=== PATIENT | male | born 1975 | race Caucasian/White ===

== ENCOUNTER 2019-09-10 22:01 | Inpatient (IN) ==
[2019-09-10] MEDS ORDERED: ZOFRAN IV ONE (22:23)
[2019-09-10] MEDS ORDERED: G.I. COCKTAIL PO ONE (22:23)
--- NOTE | 2019-09-10 22:30 | EKG Report ---
Test Performed on : 09/10/2019 10:07:11 PM Test Reason : Chest pain Blood Pressure : / mmHG Vent. Rate : 088 BPM Atrial Rate : 088 BPM P-R Int : 154 ms QRS Dur : 084 ms QT Int : 376 ms P-R-T Axes : 051 047 047 degrees QTc Int : 454 ms Normal sinus rhythm. with sinus arrhythmia. Normal ECG When compared with ECG of 11-DEC-2017 07:45, No significant change was found Unconfirmed Result
[2019-09-10] MEDS ORDERED: CARAFATE LIQUID PO ONE (23:08)
[2019-09-10 23:53] LABS: BASO# 0.02 X1000 (0.0-0.2); BASO% 0.1 % (0.0-0.8); EOS# 0.16 X1000 (0.0-0.7); EOS% 1.2 % (0.0-10.0); HEMATOCRIT 45.9 % (42.0-52.0); LYMPH# 1.77 X1000 (1.2-3.4); LYMPH% 12.8 % (20.5-51.1); MCH 31.7 PG (27-31); MCHC 34.9 g/dL (33-37); MCV 91.1 FL (81-99); MONO# 0.93 X1000 (0.11-0.59); MONO% 6.7 % (1.7-9.3); NEUT# 10.95 X1000 (1.4-6.5); NEUT% 79.2 % (42.2-75.2); PLT 292 X1000 (130-400); RBC 5.04 XMIL (4.7-6.1); RDW 12.8 % (11.5-14.5); WBC 13.83 X1000 (4.8-10.8)
[2019-09-10 23:56] LABS: AGAP 17; ALKALINE PHOSPHATASE 83 U/L (32-122); AMYLASE 44 U/L (20-200); BUN 9 mg/dL (8-22); CALCIUM 10.1 mg/dL (8.8-10.2); CHLORIDE 103 mmol/L (98-107); COSMO 282; ESTIMATED GFR > 60; GLUCOSE 100 mg/dL (70-104); GOT 21 U/L (10-34); GPT 21 U/L (10-44); LIPASE 38 U/L (13-60); POTASSIUM 4.2 mmol/L (3.5-5.1); SODIUM 142 mmol/L (136-145); TCO2 22 mmol/L (25-35); TOTAL BILIRUBIN 2.34 mg/dL (0.20-1.00); TOTAL PROTEIN 7.5 g/dL (6.3-8.3)
[2019-09-11] MEDS ORDERED: DILAUDID IV ONE (00:12)
[2019-09-11] MEDS ORDERED: SODIUM CHLORIDE 0.9% INJ ONE ×2 (00:32→16:02)
[2019-09-11] MEDS ORDERED: PROTONIX IV ONE (00:32)
[2019-09-11] MEDS ORDERED: ZOFRAN IV ONE (01:16)
--- NOTE | 2019-09-11 02:32 | PROVIDER DOCUMENTATION ---
This chart was entered by Dusty Alejandra Scribe, acting as scribe for Denilson Stinson MD. HPI-Chest Pain - General Chief Complaint: Chest Pain Stated Complaint: CHEST PAIN Time Seen by Provider: 09/10/19 22:06 Source: patient, family Allergies/Adverse Reactions: Patient Allergies Allergy/AdvReac Type Severity Reaction Status Date / Time Penicillins Allergy Intermediate jittery Verified 12/11/17 08:08 Home Medications: Home Medication List Medication Instructions Recorded Confirmed Last Taken Type Omeprazole 20 mg PO DAILY #30 capsule. 12/11/17 Unknown Rx - History of Present Illness-CP Nature of Presenting Problem: 44 yom presents to the ed with c/o chest pain. pt states similar hx of same mild symptoms but growing worse today ,( seen in ed before for same sym told " acid reflux takes medication for have not been missed). pt states N/V today , " N/V on the way to the ed." family states V [address] to the ed . 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 denies: back pain, dizziness, fever/chills, shortness of breath Nitro Today/Relief: no nitro taken today Aspirin Treatment Today: unknown Prior Chest Pain/Cardiac Workup: reports: no prior chest pain Similar Symptoms Previously?: No Recently Seen Here or By Another Healthcare Provider: No Review of Systems - Adult - REVIEW OF SYSTEMS - ADULT Constitutional: denies: chills, fever Eyes: denies: blurred vision, double vision Ears, Nose, Mouth & Throat: reports: no symptoms reported Cardiovascular: reports: see HPI, chest pain. denies: heart murmur, palpitations Respiratory: denies: shortness of breath, wheezing Gastrointestinal: reports: see HPI, abdominal pain, nausea, vomiting. denies: constipation, diarrhea, rectal bleeding Genitourinary: reports: no symptoms reported Musculoskeletal: denies: back pain, neck pain Integumentary: reports: no symptoms reported Neurological: reports: no symptoms reported Psychiatric: reports: no symptoms reported Endocrine: reports: no symptoms reported Hematologic/Lymphatic: reports: no symptoms reported Allergic/Immunologic: reports: no symptoms reported All Other Systems: Reviewed and Negative Past History - Adult - PAST MEDICAL HISTORY-ADULT Review of Records: reports: Old Records Reviewed, Nursing Assessment Review, Medications Reviewed, Social history reviewed & non-contributory. Major Childhood Illnesses: reports: denies history Cardiovascular: reports: denies history Respiratory: reports: denies history Gastrointestinal: reports: GERD Obstetrical/Gynecological: reports: denies history Genitourinary: reports: denies history Musculoskeletal: reports: denies history Neurological: reports: denies history Psychiatric: reports: denies history Endocrine/Immune: reports: denies history Other Conditions: reports: denies history - PRIOR SURGERIES/PROCEDURES Surgical/Procedure History: reports: none - IMMUNIZATION STATUS Childhood Immunizations: See Nurse Assessment Flu Vaccine: See Nurse Assessment - FAMILY HISTORY Family History: reviewed, not pertinent - SOCIAL HISTORY Smoking: denies Substance Use: denies Physical Exam-General - PHYSICAL EXAM-ADULT Initial Vital Signs Reviewed: Yes - CONSTITUTIONAL General Appearance: appears well, alert, mild distress - HEAD, EARS, NOSE, MOUTH & THROAT HENMT: negative: pharynx normal (on exam slight pharyngitis) - RESPIRATORY Respiratory: chest non-tender, lungs clear, normal breath sounds - CARDIOVASCULAR Cardiovascular: normal peripheral pulses, regular rate, rhythm - GASTROINTESTINAL (ABDOMEN) Abdominal Exam: normal bowel sounds, soft, tenderness (epi tenderness) - SKIN Integumentary: normal color - NEUROLOGIC Neurologic: grossly normal, no motor/sensory deficits - PSYCHIATRIC Psych/Mental Status: normal mood/affect, normal thought content, normal thought process, oriented x 3 - HEART Score HEART Score: History: Slightly Suspicious HEART Score: ECG: Non-Specific Repolarization Disturbance/LBBB/PM HEART Score: Age: 45-65 Years HEART Score: Risk Factors for Atherosclerotic Disease: 1 or 2 Risk Factors HEART Score: Troponin: < or = Normal Limit Total HEART Score:: 3 Progress - PLAN OF CARE/RESULTS Progress/Plan/Lab Results: Vital Signs - 8 hr 09/10/19 22:09 09/10/19 22:30 09/10/19 22:45 Temperature 97.7 F Pulse Rate 89 110 H 82 Respiratory Rate 18 15 16 Blood Pressure 149/96 O2 Sat by Pulse Oximetry 99 100 100 09/10/19 23:45 09/11/19 00:00 Temperature Pulse Rate 85 98 H Respiratory Rate Blood Pressure O2 Sat by Pulse Oximetry 100 100 Laboratory Results - last 24 hr 09/10/19 09/10/19 09/10/19 22:50 22:50 22:50 WBC 13.83 H RBC 5.04 Hgb 16.0 Hct 45.9 MCV 91.1 MCH 31.7 H MCHC 34.9 RDW Std Deviation 12.8 Plt Count 292 MPV 10.0 Neut % (Auto) 79.2 H Lymph % (Auto) 12.8 L Elbert % (Auto) 6.7 Eos % (Auto) 1.2 Baso % (Auto) 0.1 Neut # (Auto) 10.95 H Lymph # (Auto) 1.77 Elbert # (Auto) 0.93 H Eos # (Auto) 0.16 Baso # (Auto) 0.02 D-Dimer, Quantitative < 0.27 Sodium 142 Potassium 4.2 Chloride 103 Carbon Dioxide 22 L Anion Gap 17 BUN 9 Creatinine 1.0 Estimated GFR/1.73 m2 > 60 BUN/Creatinine Ratio 9 Glucose 100 Calculated Osmolality 282 Calcium 10.1 Total Bilirubin 2.34 H AST 21 ALT 21 Alkaline Phosphatase 83 Troponin T Total Protein 7.5 Albumin 5.0 Globulin 2.5 Albumin/Globulin Ratio 2.0 Amylase 44 Lipase 38 09/10/19 09/11/19 22:50 00:48 WBC RBC Hgb Hct MCV MCH MCHC RDW Std Deviation Plt Count MPV Neut % (Auto) Lymph % (Auto) Elbert % (Auto) Eos % (Auto) Baso % (Auto) Neut # (Auto) Lymph # (Auto) Elbert # (Auto) Eos # (Auto) Baso # (Auto) D-Dimer, Quantitative Sodium Potassium Chloride Carbon Dioxide Anion Gap BUN Creatinine Estimated GFR/1.73 m2 BUN/Creatinine Ratio Glucose Calculated Osmolality Calcium Total Bilirubin AST ALT Alkaline Phosphatase Troponin T < 0.010 < 0.010 Total Protein Albumin Globulin Albumin/Globulin Ratio Amylase Lipase Orders Category Date Time Status CT ABD/PELVIS W/IV CONT ONLY [CT] Stat Exams 09/11/19 00:12 Taken cxr [CHEST-1 VIEW] [RAD] Stat Exams 09/10/19 22:22 Taken AMYLASE [CHEM] Stat Lab 09/10/19 22:50 Completed CBC WITH ELECTRONIC DIFF [HEME] Stat Lab 09/10/19 22:50 Completed COMPREHENSIVE METABOLIC PANEL [CHEM] Stat Lab 09/10/19 22:50 Completed D-DIMER [COAG] Stat Lab 09/10/19 22:50 Completed LIPASE [CHEM] Stat Lab 09/10/19 22:50 Completed TROPONIN T Stat Lab 09/10/19 22:50 Completed TROPONIN T Stat Lab 09/11/19 00:48 Completed Hydromorphone [Dilaudid] Med 09/11/19 00:12 Discontinued 1 mg IV NOW ONE Lido/Barroso Alk/Al&mg Hydrox [G.i. Cocktail] Med 09/10/19 22:23 Discontinued 30 ml PO NOW ONE Ondansetron [Zofran] Med 09/10/19 22:23 Discontinued 4 mg IV NOW ONE Ondansetron [Zofran] Med 09/11/19 01:16 Discontinued 4 mg IV NOW ONE Pantoprazole [Protonix] Med 09/11/19 00:32 Discontinued 40 mg IV NOW ONE Sodium Chloride 0.9% Med 09/11/19 00:32 Discontinued 10 ml INJ NOW ONE Sucralfate [Carafate Liquid] Med 09/10/19 23:08 Discontinued 1 gm PO NOW ONE EKG [EKG] Stat Ther 09/10/19 22:03 Draft Result Diagrams: 09/10/19 22:50 09/10/19 22:50 - EKG 1 Time of EKG reading by physician:: 22:07 EKG Read and Signed by:: Denilson Stinson EKG Interpretation (*Must complete 3 of following elements*): Normal Rate: 88 Rhythm: NSR with sinus arrhythmia Webb: normal QRS: normal IA Interval: normal ST Wave: normal - CONSULTS/PCP/HOSPITALIST Notification #1 *Consult/PCP/Hospitalist*: Dr Ayoub Time Discussed: 02:32 Consult Disposition: Will see in ED, Admit Departure - Departure Date of Disposition Decision: 09/10/19 Time of Disposition Decision: 02:32 DIAGNOSIS: Chest pain, GERD (gastroesophageal reflux disease) Disposition: ADMITTED INPATIENT 09 Certified Medical Emergency: Emergent Condition: Fair Referrals and Follow-Ups: None,PCP [Primary Care Provider] - - Critical Care Note This patient required my direct & personal management of CC.: No Attestation - Physician/ [place] Attestation Patient care was provided by Advanced Practice Provider:: No The physician spent face to face time with patient:: Yes Advanced Practice Provider documentation review:: Supervising physician onsite and consulted in the evaluation and care of this patient. The physician did have a face to face encounter with the patient. This chart was documented by the indicated scribe, (Dusty Alejandra, [employer]) and accurately reflects the services I performed and decisions made by me, Denilson Stinson MD, as attested by the provider's signature.
--- NOTE | 2019-09-11 05:00 | HISTORY AND PHYSICAL ---
PRIMARY CARE PHYSICIAN: None. CHIEF COMPLAINT: Chest pain. HISTORY OF PRESENTING ILLNESS: A 44-year-old male with a history of acid reflux who had presented to the emergency department with several days history of having chest discomfort. He described it, however, as pressure like and states that it was not improving. The patient was seen in the ED and due to his presenting symptoms it was thought that we will place him for observation for further evaluation and management. At the time of my examination, patient denied any headache, fever, chills, nausea, vomiting, diarrhea, hemoptysis, melena or weight changes, but complained of chest pain. PAST MEDICAL HISTORY: Includes GERD. PAST SURGICAL HISTORY: None. ALLERGIES: Penicillin. CURRENT MEDICATIONS: Include omeprazole. SOCIAL HISTORY: No history of smoking. Admits to social alcohol use. Denies any illicit drug use. FAMILY HISTORY: No history of coronary artery disease. REVIEW OF SYSTEMS: Fourteen point review of system as listed in HPI. Other systems negative. PHYSICAL EXAMINATION: GENERAL: Cooperative, friendly male. He is resting comfortably now. VITAL SIGNS: Temperature 97.7 degrees, pulse 89, respiration 18, blood pressure 149/96. HEENT: Atraumatic, normocephalic. Extraocular movements intact. PERRLA. NECK: No masses. CHEST: Clear to auscultation. CARDIOVASCULAR: Regular rate and rhythm. ABDOMEN: Soft. Positive bowel sounds. EXTREMITIES: No edema. NEUROLOGIC: He is awake, alert, oriented x3. GENITOURINARY: No bladder distention. SKIN: Warm. LABORATORIES AND STUDIES: WBC 13.83, hemoglobin 16.1, hematocrit 45.9, platelets 292,000. Sodium 142, potassium 4.2, chloride 103, CO2 is 22, BUN is 9, creatinine is 1.0, glucose 100. ASSESSMENT: A 44-year-old male with a history of gastroesophageal reflux disease who had presented to the emergency department with several days history of having chest pain. We will place the patient for observation for further evaluation and management. 1. Chest pain. 2. Gastroesophageal reflux disease. PLAN: 1. We will admit patient to medical floor with telemetry. 2. Continue with cardiac workup. Check EKG, serial cardiac enzymes. Have patient continue on aspirin. We will use sublingual nitroglycerin and morphine p.r.n. chest pain. 3. We will continue patient on PPI. 4. We will put patient on DVT prophylaxis with SCDs. 5. We will continue to follow and reassess, make further recommendation based on patient's clinical course. cc: Tripp Ayoub MD
--- NOTE | 2019-09-11 05:38 | Diag Imaging Result Doc PS360 ---
EXAM: CHEST-1 VIEW HISTORY: chest pain TECHNIQUE: Single view COMPARISON: 11/11/2013 FINDINGS: The lungs are well expanded. The heart is not enlarged. The vessels are not distended. There are no infiltrates. No effusion identified. There is a granuloma in the mid left lung. IMPRESSION: Negative exam. Electronically signed by Angel Andre 09/11/2019 5:36 AM
[2019-09-11] MEDS ORDERED: NITROGLYCERIN SL PRN (06:36)
[2019-09-11] MEDS ORDERED: ZOFRAN IV PRN (06:36)
[2019-09-11] MEDS: PRILOSEC PO SCH ×2 (07:00→13:23)
--- NOTE | 2019-09-11 07:22 | Diag Imaging Result Doc PS360 ---
EXAM: CT ABD/PELVIS W/IV CONT ONLY 09/11/2019 HISTORY: epigastric abdo pain TECHNIQUE: This exam was performed using automated exposure control, adjustment of mA or kV according to patient size, and/or use of iterative reconstruction technique. COMMENT: There is no evidence of acute disease in the visualized portion of the chest. There are no previous studies. The stomach is somewhat distended with fluid and gas. There are some granulomata in the spleen which is slightly enlarged measuring over 14 cm in AP dimension. The gallbladder is unremarkable in appearance. The liver is within normal limits. The adrenal glands are not enlarged. The pancreas is unremarkable. The renal pelves are somewhat prominent particularly the right renal pelvis. There may be a slight degree of hydronephrosis on the right. The right ureter is not distended and the possibility of a ureteral pelvic junction stenosis is suggested. There is no evidence of bowel obstruction. There is a certain amount of fluid throughout the small bowel. The appendix is not distended or inflamed in appearance. There is some stool throughout the colon without evidence of dilatation. No significant adenopathy is present. The aorta is not distended. Pelvis: There is no free fluid. The urinary bladder is not distended. The regional skeleton is intact. There is a bone island in the right ilium. There are some degenerative disc changes. There is no evidence of acute bony abnormality. IMPRESSION: The possibility of gastroenteritis cannot be excluded. Otherwise no evidence of acute disease. Electronically signed by Dario Hopper 09/11/2019 7:20 AM
[2019-09-11] MEDS ORDERED: ASPIRIN PO SCH (09:00)
--- NOTE | 2019-09-11 10:25 | CARDIOLOGY CONSULTATION ---
DATE: 09/11/2019 REASON FOR CONSULTATION: Cardiology was consulted for chest pain. HISTORY OF PRESENT ILLNESS: 44-year-old, gentleman with history of gastroesophageal reflux disease. He comes in with complaints of chest pain. He describes his chest pain as in the epigastric lower sternal region and at times in the abdomen as well. He has also had some midsternal chest discomfort. Says that these areas of chest pain seem to change from time to time. He came to the emergency room and was ruled out for myocardial infarction by cardiac enzymes. There is no exertional component of chest pain. There is no history of palpitations. There is no dizziness or syncope. REVIEW OF SYSTEM: A 14-point review of systems was done. GI System as above. In addition, there is no history of hematemesis or melena.Central nervous system: No focal weakness to suggest a CVA or TIA. Genitourinary: There is no dysuria or hematuria. Respiratory System: There is no history of cough, expectoration, hemoptysis. There is no history of fevers or chills. PAST MEDICAL HISTORY: Gastroesophageal reflux disease. CURRENT MEDICATIONS: Omeprazole. ALLERGIES: Allergic to aspirin. PHYSICAL EXAMINATION: Vital Signs: Blood pressure 127/87. Cardiovascular System: Normal jugular venous pressure. There no thyromegaly. No carotid bruit. First and second heart sounds were heard. There was no S3 gallop. Respiratory System: Normal air entry. There are no crepitations or rhonchi. Abdomen: Soft. There was epigastric tenderness. There was no guarding or rigidity. Bowel sounds were heard. Central nervous system: Alert and was moving all 4 extremities. Extremities: Examination of extremities revealed no pedal edema. HEENT: Atraumatic, normocephalic. Pupils were equal and reacting to light. ASSESSMENT: Mr. Chaparro Rosas is a 44-year-old gentleman with history of gastroesophageal reflux disease. He comes in with complaints of abdominal discomfort as well as retrosternal chest discomfort that is more suggestive of gastroesophageal reflux disease. He was ruled out for myocardial infarction by cardiac enzymes. Sodium 142, potassium 4.2, BUN 9, creatinine 1.0, amylase 44, lipase 3. Cardiac enzymes were negative. A CT scan was done which revealed possible gastroenteritis. Otherwise no other obvious acute changes. PLAN: 1. From a cardiac standpoint, we will get an echocardiogram to assess cardiac and valvular function. 2. We will get a Cardiolite stress test to make sure there is no ischemia. 3. I would recommend GI workup. cc: Rodger Medley MD
[2019-09-11] MEDS ORDERED: LEXISCAN ONE (11:42)
--- NOTE | 2019-09-11 14:10 | Diag Imaging Result Document ---
PROCEDURE NAME: MYOCARDIAL PERF SCAN, STR/REST - 09/11/2019 INDICATION: Chest pain. PROCEDURES PERFORMED: 1. Lexiscan stress. 2. One-day stress rest myocardial perfusion imaging. PROCEDURE FINDINGS: LEXISCAN STRESS RESULTS: 1. Baseline EKG shows sinus tachycardia, rate of 104 beats per minute. There is mild nonspecific ST-T changes in the inferior and lateral leads. 2. Lexiscan stress does not demonstrate any clear evidence of ischemic changes. There do not appear to be any clear significant ST depression changes from baseline, although baseline EKG somewhat limits the ability to interpret this study. PVCs were identified but no significant arrhythmias. PERFUSION IMAGING RESULTS: 1. No evidence of abnormal extracardiac uptake. 2. TID ratio is 1.16. 3. Perfusion imaging does not demonstrate any clear evidence of ischemic defects. There is some very mild likely soft tissue attenuation artifact inferiorly but wall motion appears to be intact in this study. I believe these perfusion images suggest a low risk of ischemic events. 4. Normal ejection fraction of 63%. End-diastolic volume 121, end-systolic volume of 45. Wall motion appears to be normal. cc: MD Chio Díaz PA
[2019-09-11] MEDS: TYLENOL PO PRN (14:50)
--- NOTE | 2019-09-11 16:12 | ECHO REPORT ---
ORDER DATE: 09/11/2019 INDICATION: Chest pain. FINDINGS: 1. The right atrium appears normal in size at 3.7 cm. 2. Mild tricuspid regurgitation. RV systolic pressure of 37. 3. Normal RV size and systolic function. 4. No significant pulmonic insufficiency. 5. Normal left atrial size with a dimension of 3.6 cm. 6. No mitral prolapse. There is mild mitral regurgitation. 7. Normal LV size, end-diastolic dimension of 5.3 cm. Normal wall thicknesses with a posterior and interventricular septal wall thickness of 0.9 cm each. Normal LV systolic function. Estimated EF of 55% to 60% percent with normal wall motion. 8. Aortic valve opens well. It is trileaflet. No evidence of stenosis or insufficiency. 9. Aorta appears normal in visualized segments. 10. No pericardial effusion seen. cc: MD Chio Díaz PA
[2019-09-11] MEDS ORDERED: PROTONIX IV SCH (16:15)
--- NOTE | 2019-09-11 16:26 | PROGRESS NOTE ---
DATE: 09/11/2019 SUBJECTIVE: This morning Mr. Robins refers to be doing well. He still complains of some epigastric and mid-abdomen pain. Mr. Robins also refers that he did have a lot of vomiting and diarrhea. Even just a while ago he asked to empty his bowel and it was diarrhea. OBJECTIVE: Vital signs: Blood pressure is 127/87, pulse of 102, respirations 18, temperature 98.2 degrees. General: Mr. Robins is a 44-year-old gentleman. He is in bed. No distress. HEENT: Mucosa is pink and moist. Anicteric. Acyanotic. Neck: Supple. Chest: Clear to auscultation. No crepitations. No rhonchi. Cardiovascular: Regular rate and rhythm. No murmurs. No rubs. No gallops. GI: Abdomen is soft. Tender in the midepigastrium. No rebound. No guarding. Bowel sounds present. Extremities: No pedal edema. POT SANDER: The patient is awake, alert, and oriented. LABORATORY DATA: So far WBC was 13.84 from yesterday. No chemistry. Troponins have been checked 3 times which were negative. EKG was unremarkable. A myocardial perfusion scan showed an ejection fraction of 63%. No wall motion abnormality. A CT scan of the abdomen and pelvis showed possibility of gastroenteritis. ASSESSMENT: 1. Intractable nausea and vomiting associated with diarrhea and abdominal discomfort, all consistent with possible viral gastroenteritis. We are going to get a stool culture. We will keep Mr. Robins also on a clear to full liquid diet. If he tolerates it, we will advance it to GI soft. We will give Bentyl for pain management and the patient will also be put on Protonix. 2. Cardiac workup has been fairly unremarkable. 3. History of gastroesophageal reflux disease. The patient will be on Protonix IV since he is not able to tolerate p.o. cc: Marcial Cat MD
[2019-09-11] MEDS: NS 1,000 ML IV SCH (16:48)
[2019-09-11] MEDS: BENTYL IM SCH ×2 (17:00→20:41)
[2019-09-11 23:50] LABS: CK-MB 3.86 ng/mL (0.0-5.0)
[2019-09-12] MEDS: NS 1,000 ML IV SCH (02:54)
[2019-09-12 05:32] LABS: BASO# 0.01 X1000 (0.0-0.2); BASO% 0.2 % (0.0-0.8); EOS# 0.06 X1000 (0.0-0.7); EOS% 1.3 % (0.0-10.0); HEMATOCRIT 40.4 % (42.0-52.0); HEMOGLOBIN 13.7 g/dL (14.0-18.0); LYMPH# 1.14 X1000 (1.2-3.4); MCH 31.6 PG (27-31); MCHC 33.9 g/dL (33-37); MCV 93.3 FL (81-99); MONO# 0.66 X1000 (0.11-0.59); MONO% 14.5 % (1.7-9.3); MPV 9.6 FL (7.4-10.4); NEUT# 2.69 X1000 (1.4-6.5); PLT 222 X1000 (130-400); RBC 4.33 XMIL (4.7-6.1); RDW 12.9 % (11.5-14.5); WBC 4.56 X1000 (4.8-10.8)
[2019-09-12] MEDS: BENTYL IM SCH (05:57)
[2019-09-12 05:58] LABS: CHOLESTEROL 122 mg/dL (0-200); HDL 60 mg/dL (35-55); LDL 51 mg/dL; TRIGLYCERIDES 56 mg/dL (39-160); VLDL 11 mg/dL
[2019-09-12] MEDS: TYLENOL PO PRN (08:46)
[2019-09-12] MEDS ORDERED: SODIUM CHLORIDE 0.9% 10 ML ONE (09:37)
[2019-09-12 11:27] VITALS: BP 119/83
--- NOTE | 2019-09-13 16:05 | DISCHARGE SUMMARY ---
ADMISSION DATE: 09/10/2019 DISCHARGE DATE: 09/12/2019 DISPOSITION: Home. FOLLOWUP: Dr. Medley. CONSULTATION DURING THIS ADMISSION: Cardiology was consulted. Patient was seen by Dr. Medley. INVASIVE PROCEDURES DURING THIS ADMISSION: None. IMAGING STUDIES OF SIGNIFICANCE: 1. Chest x-ray shows negative exams. 2. CT scan of the abdomen and pelvis show possibility of gastroenteritis, otherwise no evidence of acute disease. 3. An echocardiogram showed an ejection fraction of 55 to 60 percent. Normal wall motion. 4. A myocardial perfusion scan shows ejection fraction of 63%. Low risk ischemic event. ADMISSION DIAGNOSES: 1. Chest pain. 2. Gastroesophageal reflux disease. DIAGNOSIS AT THE TIME OF DISCHARGE: 1. Intractable nausea and vomiting associated with diarrhea due to gastroenteritis. 2. Chest discomfort with negative cardiac workup, most likely noncardiac. 3. Gastroesophageal reflux. DISCHARGE MEDICATIONS: 1. Pantoprazole 40 mg p.o. daily. 2. Bentyl 10 mg p.o. with each meal. 3. Lactobacillus 1 tablet p.o. daily. PRESENTING COMPLAINT: Nausea and vomiting, chest pain. HISTORY OF PRESENT COMPLAINT: Mr. Robins is a 44-year-old male who presented to the emergency department because of chest pain. He also did have nausea, vomiting and diarrhea. Upon presenting, he was initially evaluated. He was slightly hypertensive with a blood pressure 149/96. He was admitted initially for chest pain rule out. EKG was done initially which did not show any acute ST or T-waves abnormalities. Cardiology was consulted. Patient was evaluated by Dr. Medley. Echocardiogram and stress test was done which was completely negative. Mr. Robins also did complain of nausea and vomiting and diarrhea for which a CT scan of the abdomen and pelvis was done which did not show any acute abnormalities. His stool studies showed no enteric pathogen on the stool culture, WBC in the stool-none was seen and his Clostridium difficile was negative. We think that his gastroenteritis was probably viral related. This morning, Mr. Robins has been doing well. He is tolerating his diet. The diarrhea has significantly improved. We think that he is stable for discharge. The was at the bedside. She had a lot of concern of possible gallbladder disease. I did notify her and Mr. Robins that it is very possible that he could as well have gallbladder disease however his CT scan was completely negative for any gallstone and there was no any enhancement on the gallbladder stark, so he does not seem to have any acute cholecystitis. If there is any concern of a gallbladder disease, it would be reasonable for him to follow up with a surgeon, but prior to that, I think it would be reasonable for him to have his upper GI evaluated to rule out any ulcers or inflammation that could also account for his chest discomfort. Mr. Robins and the did voice understanding and said they will follow up accordingly, as indicated. This morning his vitals, blood pressure was 19/83, pulse of 71, respirations 13 temperature 97.7 degrees, saturation is 100% on room air. Mr. Robins is clinically stable for discharge. DISCHARGE INSTRUCTIONS: All the discharge instructions were discussed with him and the and they both voiced understanding. TIME SPENT FOR DISCHARGE: 38 minutes. cc: Marcial Cat MD
== END 2019-09-12 14:08 | disposition home or self-care (01) | DRG 313 ==
LOC: ED 22:01 → 1N 22:01 → SUATTDRO 22:10 → OBSVTOIN 22:10
PROVIDERS: ATTEND Internal Medicine